=== PATIENT | female | born 1980 | race African-American/Black ===

== ENCOUNTER 2016-08-31 13:14 | Observation (INO) | payer OTHER ==
[2016-08-31 13:30] VITALS: TEMP 98.3; BMI 24.7
[2016-08-31] MEDS ORDERED: SODIUM CHLORIDE 1,000 ML IV ONE (15:14)
[2016-08-31] MEDS ORDERED: ASPIRIN 81 MG CHEWABLE TABLETS PO ONE (15:14)
--- NOTE | 2016-08-31 15:19 | PDOC ---
History of Present Illness - General History Source: Patient Exam Limitations: No Limitations - History of Present Illness Initial Comments: 08/31/16 14:44 The patient is a 36-year-old woman, accompanied by her son, with a past medical history of gastroesophageal reflux disease and depression who presents to the emergency department for further evaluation of persistent chest pain for the past three weeks. No trauma, strenuous activity. She states that for the past 3 weeks, she has been experiencing intermittent mid-sternal pressure sensations with associated shortness of breath, palpitations and chest tightness. She states that for the past few days, she notes that her symptoms are more severe, as she notes that she is unable to perform her daily activities, such as walking up stairs without feeling short of breath. She recalls driving to [place], approximately 2 weeks ago. She states that she is always swollen to her bilateral upper/lower extremities. No recent change. She states that she was recently in this ED, where she was evaluated for bilateral leg swelling and she was informed she had GOUT. No current complaints. She also reports her chronic intermittent productive cough with white-yellow phlegm. No recent change in cough. She reports having an outpatient stress test, approximately 3-4 months ago. She state her stress test was normal. She denies headache,dizziness, lightheadedness, fever, chills, back pain. She denies abdominal pain,nausea, vomiting, diarrhea, hematochezia, melena She denies lower extremity pain/swelling and/or recent prolonged immobilization. Allergies: None Known Past Surgical History: None reported. Social History: Current everyday cigarette smoker (approximately half a pack- 1 pack a day "depending how her day is going"). Occasional ETOH use. Marijuana use. Primary Care Physician: Dr. Radha Dc [phone] <Adilene Clay - Last Filed: 08/31/16 16:25> <Janes Gutierrez - Last Filed: 08/31/16 16:46> - General Chief Complaint: Chest Pain Stated Complaint: CHEST PAIN Time Seen by Provider: 08/31/16 14:42 Past History <Adilene Clay - Last Filed: 08/31/16 16:25> - Past Medical History Asthma: No Cancer: No Cardiac Disorders: No Diabetes: No HTN: No Seizures: No Thyroid Disease: No Other medical history: PT DENIES MEDICAL HX - Psycho/Social/Smoking Cessation Hx Anxiety: No Suicidal Ideation: No Smoking History: Current every day smoker Have you smoked in the past 12 months: Yes Number of Cigarettes Smoked Daily: 10 Information on smoking cessation initiated: No 'Breaking Loose' booklet given: 07/30/13 Hx Alcohol Use: No Drug/Substance Use Hx: No Substance Use Type: None Hx Substance Use Treatment: No <Janes Gutierrez - Last Filed: 08/31/16 16:46> - Past Medical History Allergies/Adverse Reactions: Allergies Allergy/AdvReac Type Severity Reaction Status Date / Time No Known Allergies Allergy Verified 08/31/16 13:31 Home Medications: Ambulatory Orders Dicyclomine HCl [Bentyl -] 20 mg PO Q6H 03/11/16 Mirtazapine 30 mg PO ASDIR 03/11/16 Ondansetron [Zofran -] 4 mg PO TID 03/11/16 Pantoprazole Sodium [Protonix] 40 mg PO ASDIR 03/11/16 Ibuprofen [Motrin -] 600 mg PO QID #28 tablet 03/12/16 Tramadol HCl [Ultram -] 50 mg PO Q6H #8 tablet MDD 4 03/12/16 Review of Systems - Review of Systems Constitutional: Yes: Chills, Night Sweats (chronic). No: Fever Respiratory: Yes: Cough, Shortness of Breath, SOB with Exertion Cardiac (ROS): Yes: Chest Pain, Edema, Palpitations. No: Syncope ABD/GI: No: Nausea, Vomiting Neurological: No: Headache All Other Systems: Reviewed and Negative <Janes Gutierrez - Last Filed: 08/31/16 16:46> *Physical Exam - Vital Signs Last Vital Signs Temp Pulse Resp BP Pulse Ox 98.3 F 88 18 121/62 100 08/31/16 13:28 08/31/16 15:30 08/31/16 13:28 08/31/16 13:28 08/31/16 13:28 - Physical Exam Comments: 08/31/16 14:44 GENERAL: The patient is awake, alert, and fully oriented, in no acute distress. HEAD: Normal with no signs of trauma. EYES: Pupils equal, round and reactive to light, extraocular movements intact, sclera anicteric, conjunctiva clear with no pallor. ENT: Ears normal, nares patent, oropharynx clear without exudates. Moist mucous membranes. NECK: Normal range of motion, supple without lymphadenopathy, JVD, or masses. LUNGS: Breath sounds equal, clear to auscultation bilaterally. No wheeze/ crackles. Dry coarse cough noted during physical examination. HEART: Slight tachycardia but regular rate and rhythm without murmur or rub. ABDOMEN: Soft/nontender/nondistended. BS wnl. No guarding or rebound. No palpable masses. No hepatosplenomegaly. EXTREMITIES: Normal range of motion, no edema. No clubbing or cyanosis. No cords, erythema, or tenderness. NEUROLOGICAL: Cranial nerves II through XII grossly intact. Normal speech. PSYCH: Normal mood, normal affect. SKIN: Warm, Dry, normal turgor, no rashes or lesions noted. <Adilene Clay - Last Filed: 08/31/16 16:25> - Vital Signs Last Vital Signs Temp Pulse Resp BP Pulse Ox 98.3 F 120 H 18 121/62 100 08/31/16 13:28 08/31/16 13:28 08/31/16 13:28 08/31/16 13:28 08/31/16 13:28 <Janes Gutierrez - Last Filed: 08/31/16 16:46> Heart Score/ECG Review - History History: Moderately suspicious - Electrocardiogram EKG: Non specific repolarization disturbance - Age Age: </= 45 - Risk Factors Risk Factors Heart Score: Yes Smoking History Based on the list above the patient has:: 1-2 risk factors - Troponin Troponin: </= normal limit - Score Heart Score - Total: 3 #1 ECG reviewed & interpreted by me at: 12:42 General ECG Interpretation: Sinus Rhythm, Normal Rate (88), Normal Intervals ( qtc 452), No acute ischemic changes (Biphasic T wave in V3, otherwise no acute ST changes.) <Janes Gutierrez - Last Filed: 08/31/16 16:46> ED Treatment Course - LABORATORY CBC & Chemistry Diagram: 08/31/16 15:18 08/31/16 15:18 - Medications Given in the ED: ED Medications Discontinued Medications Generic Name Dose Route Start Last Admin Trade Name Freq PRN Reason Stop Dose Admin Aspirin 162 mg 08/31/16 15:14 08/31/16 15:39 Asa - PO 08/31/16 15:15 162 mg ONCE ONE Administration <Adilene Clay - Last Filed: 08/31/16 16:25> - LABORATORY CBC & Chemistry Diagram: 08/31/16 15:18 08/31/16 15:18 - RADIOLOGY Radiology Studies Ordered: Category Date Time Status CHEST CTA [CT] Stat CT Scan 08/31/16 15:15 Ordered <Janes Gutierrez - Last Filed: 08/31/16 16:46> Medical Decision Making - Medical Decision Making 08/31/16 15:17 A portion of this note was documented by scribe services under my direction. I have reviewed the details of the note, within reason, and agree with the documentation with the following case summary and management plan written by me. 36-year-old female with no significant past medical history, active smoker presents with several weeks of worsening shortness of breath and cough, exertional chest tightness and shortness of breath, intermittent leg swelling. Patient states that her usual exertion now causes substernal to right-sided chest tightness with severe dyspnea, and a dry cough. No PE risk factors, no ACS risk factors or family history, reportedly normal stress test in the last 6 months. Vital signs notable for heart rate at rest of 100-120, O2 sat normal. Dry cough during exam Lungs are clear 36-year-old female with exertional chest pain and dyspnea worsening over the last 3 weeks. Concerning for PE versus ACS, question cardiomyopathy. Question infectious process such as pneumonia. Labs, EKG Will proceed directly to CTA chest to rule out PE Aspirin Admission 08/31/16 16:20 Labs are within normal limits, no leukocytosis and troponin and BNP normal. negative. Awaiting CTA chest, will proceed with admission given exertional chest pain and dyspnea. 08/31/16 16:41 Accepted for obs tele by Dr. Hughes. Patient was signed out to the oncoming ED physician to follow-up the results of the CTA Chest. Will proceed with admission, but should be inpatient if +PE. <Janes Gutierrez - Last Filed: 08/31/16 16:46> *DC/Admit/Observation/Transfer - Attestations Scribe Attestion: 08/31/16 14:44 Documentation prepared by Adilene Clay, acting as medical sales representative for Janes Gutierrez MD. <Adilene Clay - Last Filed: 08/31/16 16:25> - Discharge Dispostion Admit: Yes <Janes Gutierrez - Last Filed: 08/31/16 16:46> Diagnosis at time of Disposition: Exertional chest pain, Tachycardia - Referrals Referrals: Amina Dc [Primary Care Provider] -
[2016-08-31] MEDS ORDERED: ASPIRIN 81 MG CHEWABLE TABLETS ONE (15:34)
[2016-08-31 15:41] LABS: BASOPHIL 0.5 % (0-2.0); EOSINOPHIL 0.4 % (0-4.5); MCH 24.8 pg (25.7-33.7); MCHC 32.6 g/dl (32.0-36.0); MEAN CELL VOLUME 75.9 fl (80-96); NEUTROPHILS 59.5 % (42.8-82.8); PLATELET COUNT 397 K/MM3 (134-434); RDW 17.8 % (11.6-15.6); WHITE BLOOD COUNT 10.3 K/mm3 (4.0-10.0)
[2016-08-31 15:56] LABS: INR 1.01 (0.82-1.09); PROTHROMBIN TIME (PATIENT) 11.1 SEC (9.98-11.88)
[2016-08-31 16:12] LABS: ALBUMIN 3.7 g/dl (3.4-5.0); ALK PHOS 98 U/L (45-117); ANION GAP 14 (8-16); BILIRUBIN,TOTAL 0.2 mg/dL (0.2-1.0); CO2 22 mmol/L (21-32); CREATININE 0.8 mg/dL (0.55-1.02); GLUCOSE,RANDOM 95 mg/dL (74-106); SGOT/AST 32 U/L (15-37); SGPT/ALT 36 U/L (12-78); TOT PROT 8.1 g/dl (6.4-8.2)
[2016-08-31 16:14] LABS: TROPONIN I < 0.02 ng/ml (0.00-0.05)
[2016-08-31] MEDS ORDERED: ONDANSETRON 4 MG/2 ML VIAL IVPB PRN (18:01)
[2016-08-31] MEDS ORDERED: ACETAMINOPHEN 325 MG TABLET (FP) PO PRN (18:01)
--- NOTE | 2016-08-31 18:01 | HP ---
CHIEF COMPLAINT: Chest pain PCP: Dr. Dc HISTORY OF PRESENT ILLNESS: This is a 36 year old female with a history of childhood asthma, GERD, and depression who presented to the ED today complaining of 3 weeks of intermittent chest tightness/pressure, dyspnea on minimal exertion (<1 block exercise tolerance) and palpitations. She does report bilateral LE edema, but states that this is chronic and unchanged. 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 She denies OCP/estrogen use, family/personal history of hypercoaguability, recent trauma or surgery, and hemoptysis. She traveled to [place] by car two weeks ago, but notes that symptoms preceded travel. She is an active smoker. 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 Smokin/2 - 1 pack daily x 22 yrs Alcohol: Occasional Drugs: Marijuana use Allergies No Known Allergies Allergy (Verified 08/31/16 13:31) HOME MEDICATIONS: Home Medications Medication Instructions Recorded Dicyclomine HCl [Bentyl -] 20 mg PO Q6H 03/11/16 Mirtazapine 30 mg PO ASDIR 03/11/16 Ondansetron [Zofran -] 4 mg PO TID 03/11/16 Pantoprazole Sodium [Protonix] 40 mg PO ASDIR 03/11/16 Ibuprofen [Motrin -] 600 mg PO QID #28 tablet 03/12/16 Tramadol HCl [Ultram -] 50 mg PO Q6H #8 tablet MDD 4 03/12/16 REVIEW OF SYSTEMS CONSTITUTIONAL: Absent: fever, chills, diaphoresis, generalized weakness, malaise, loss of appetite, weight change HEENT: Absent: rhinorrhea, nasal congestion, throat pain, throat swelling, difficulty swallowing, mouth swelling, ear pain, eye pain, visual changes CARDIOVASCULAR: See HPI RESPIRATORY: Non-productive cough, shortness of breath, NG GASTROINTESTINAL: Absent: abdominal pain, abdominal distension, nausea, vomiting, diarrhea, constipation, melena, hematochezia GENITOURINARY: Absent: dysuria, frequency, urgency, hesitancy, hematuria, flank pain, genital pain MUSCULOSKELETAL: Absent: myalgia, arthralgia, joint swelling, back pain, neck pain SKIN: Absent: rash, itching, pallor HEMATOLOGIC/IMMUNOLOGIC: Absent: easy bleeding, easy bruising, lymphadenopathy, frequent infections ENDOCRINE: Absent: unexplained weight gain, unexplained weight loss, heat intolerance, cold intolerance NEUROLOGIC: Absent: headache, focal weakness or paresthesias, dizziness, unsteady gait, seizure, mental status changes, bladder or bowel incontinence PSYCHIATRIC: History of depression/anxiety PHYSICAL EXAMINATION Vital Signs - 24 hr 08/31/16 08/31/16 08/31/16 13:28 15:30 16:35 Temperature 98.3 F Pulse Rate 120 H Pulse Rate [ 88 105 H Radial] Respiratory 18 18 Rate Blood Pressure 121/62 Blood Pressure 105/70 [Right Arm] O2 Sat by Pulse 100 100 Oximetry (%) GENERAL: Awake, alert, and fully oriented, in no acute distress. HEAD: Normal with no signs of trauma. EYES: Pupils equal, round and reactive to light, extraocular movements intact, sclera anicteric, conjunctiva clear. No lid lag. EARS, NOSE, THROAT: Ears normal, nares patent, oropharynx clear without exudates. Moist mucous membranes. NECK: Normal range of motion, supple without lymphadenopathy, JVD, or masses. LUNGS: Breath sounds equal, clear to auscultation bilaterally. No wheezes, and no crackles. No accessory muscle use. HEART: Regular rate and rhythm, normal S1 and S2 without murmur, rub or gallop. ABDOMEN: Soft, nontender, not distended, normoactive bowel sounds, no guarding, no rebound, no masses. No hepatomegaly or splenomegaly. MUSCULOSKELETAL: Normal range of motion at all joints. No bony deformities or tenderness. No CVA tenderness. UPPER EXTREMITIES: 2+ pulses, warm, well-perfused. No cyanosis. No clubbing. Cap refill <2 seconds. No peripheral edema. LOWER EXTREMITIES: 2+ pulses, warm, well-perfused. No calf tenderness. No peripheral edema. NEUROLOGICAL: Cranial nerves II-XII intact. Normal speech. Normal gait. PSYCHIATRIC: Anxious affect. SKIN: Warm, dry, normal turgor, no rashes or lesions noted. Laboratory Results - last 24 hr 08/31/16 08/31/16 08/31/16 15:18 15:18 15:18 WBC 10.3 H RBC 4.79 D Hgb 11.9 Hct 36.4 MCV 75.9 L MCHC 32.6 RDW 17.8 H D Plt Count 397 D MPV 7.0 L Neutrophils % 59.5 D Lymphocytes % 33.1 D Monocytes % 6.5 D Eosinophils % 0.4 Basophils % 0.5 INR 1.01 Sodium Potassium Chloride Carbon Dioxide Anion Gap BUN Creatinine Creat Clearance w eGFR Random Glucose Calcium Magnesium Total Bilirubin AST ALT Alkaline Phosphatase Creatine Kinase Troponin I B-Natriuretic Peptide Total Protein Albumin Serum , Qual Negative Blood Type Antibody Screen 08/31/16 08/31/16 15:18 16:45 WBC RBC Hgb Hct MCV MCHC RDW Plt Count MPV Neutrophils % Lymphocytes % Monocytes % Eosinophils % Basophils % INR Sodium 137 Potassium 3.7 Chloride 101 Carbon Dioxide 22 Anion Gap 14 BUN 12 D Creatinine 0.8 D Creat Clearance w eGFR > 60 Random Glucose 95 D Calcium 9.0 Magnesium 2.0 Total Bilirubin 0.2 D AST 32 D ALT 36 D Alkaline Phosphatase 98 D Creatine Kinase 101 Troponin I < 0.02 B-Natriuretic Peptide 37.61 Total Protein 8.1 D Albumin 3.7 Serum , Qual Blood Type O POSITIVE Antibody Screen Negative ASSESSMENT/PLAN: 36 year old female placed in observation for chest pain and NG. Problem List - Problem (1) Chest pain Assessment/Plan: -Monitor on telemetry -Follow up CTA chest to r/o PE -Serial troponins to r/o NM -Check TSH (tachycardia), lipid profile -Suspect MS etiology; trial of Toradol for pain relief Code(s): R07.9 - CHEST PAIN, UNSPECIFIED (2) Dyspnea on exertion Assessment/Plan: -Echocardiogram Code(s): R06.09 - OTHER FORMS OF DYSPNEA (3) Smoking Assessment/Plan: -Smoking cessation counseling -Nicotine replacement Code(s): F17.200 - NICOTINE DEPENDENCE, UNSPECIFIED, UNCOMPLICATED (4) DVT prophylaxis Assessment/Plan: -Low risk (short expected length of stay) -Early ambulation Code(s): GVC2926 - Visit type - Emergency Visit Emergency Visit: Yes ED Registration Date: 08/31/16 Care time: The patient presented to the Emergency Department on the above date and was hospitalized for further evaluation of their emergent condition. - New Patient This patient is new to me today: Yes Date on this admission: 08/31/16 - Critical Care Critical Care patient: No
[2016-08-31] MEDS ORDERED: KETOROLAC TROMETHAMINE 15 MG/ML VIAL IVPUSH PRN (18:04)
[2016-08-31] MEDS ORDERED: KETOROLAC TROMETHAMINE 30 MG/1 ML VIAL IVPUSH ONE (18:04)
[2016-08-31] MEDS ORDERED: NICOTINE 14 MG/24 HOURS TOPICAL PATCH TD SCH (18:15)
[2016-08-31] MEDS ORDERED: KETOROLAC TROMETHAMINE 30 MG/1 ML VIAL ONE (18:32)
[2016-08-31 19:17] VITALS: BP 121/85; PULSE 94
--- NOTE | 2016-09-01 13:57 | EKG ---
Test Reason : Blood Pressure : / mmHG Vent. Rate : 088 BPM Atrial Rate : 088 BPM P-R Int : 108 ms QRS Dur : 072 ms QT Int : 374 ms P-R-T Axes : 052 021 032 degrees QTc Int : 452 ms SINUS RHYTHM WITH SHORT WA NONSPECIFIC ST AND T WAVE ABNORMALITY ABNORMAL ECG NO PREVIOUS ECGS AVAILABLE Confirmed by JACOB CARUSO MD ([id number]) on 09/01/2016 1:56:57 PM Referred By: Confirmed By:JACOB CARUSO MD
--- NOTE | 2016-09-01 16:41 | DS ---
Physical Exam: SUBJECTIVE: Patient seen and examined. Still complains of chest pain but wants to sign out AMA. OBJECTIVE: Vital Signs Period Temp Pulse Resp BP Sys/Ivy Pulse Ox Last 24 Hr 94 20 121/85 94 PHYSICAL EXAM GENERAL: The patient is awake, alert, and fully oriented, in no acute distress. HEAD: Normal with no signs of trauma. EYES: PERRL, extraocular movements intact, sclera anicteric, conjunctiva clear. ENT: Ears normal, nares patent, oropharynx clear without exudates, moist mucous membranes. NECK: Trachea midline, full range of motion, supple. LUNGS: Breath sounds equal, clear to auscultation bilaterally, no wheezes, no crackles, no accessory muscle use. HEART: Regular rate and rhythm, S1, S2 without murmur, rub or gallop. ABDOMEN: Soft, nontender, nondistended, normoactive bowel sounds, no guarding, no rebound, no hepatosplenomegaly, no masses. EXTREMITIES: 2+ pulses, warm, well-perfused, no edema. NEUROLOGICAL: Cranial nerves II through XII grossly intact. Normal speech, gait not observed. PSYCH: Anxious affect, tearful. SKIN: Warm, dry, normal turgor, no rashes or lesions noted. LABS HOSPITAL COURSE: This is a 36 year old female with a history of childhood asthma , GERD, and depression who presented to the ED today complaining of 3 weeks of intermittent chest tightness/pressure, dyspnea on minimal exertion (<1 block exercise tolerance) and palpitations. She does report bilateral LE edema, but states that this is chronic and unchanged. 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 She denies OCP/estrogen use, family/personal history of hypercoaguability, recent trauma or surgery, and hemoptysis. She traveled to [place] by car two weeks ago, but notes that symptoms preceded travel. She is an active smoker. ER course was notable for: (1) Triage HR 120 (2) EKG: NSR rate of 88 (3) Troponin <0.02 CTA was obtained and was negative for PE. Patient was counseled on risks of leaving prior to completion of workup, including . She understands. Patient encouraged to return for re- evaluation. Date of Admission:08/31/16 Date of Discharge: 09/01/16 Minutes to complete discharge: 35 Discharge Summary Reason For Visit: CHEST PAIN ON EXERTION - Instructions Diet, Activity, Other Instructions: -You are being signed out AGAINST MEDICAL ADVICE. -You were recommended to have observation on telemetry to rule out arrhythmias, echocardiogram to assess the structure and function of the heart, serial cardiac tests to rule out heart attack, and pulmonary consultation for abnormal chest CT scan, but you declined -You are risking complications including heart attack, heart failure, and -Please return at any time if you would like to continue your evaluation Referrals: Elio José MD [Staff Physician] - (Cardiology) Amina Dc [Primary Care Provider] - Disposition: AGAINST MEDICAL ADVICE - Home Medications Comprehensive Discharge Medication List: Ambulatory Orders Dicyclomine HCl [Bentyl -] 20 mg PO Q6H 03/11/16 Mirtazapine 30 mg PO ASDIR 03/11/16 Ondansetron [Zofran -] 4 mg PO TID 03/11/16 Pantoprazole Sodium [Protonix] 40 mg PO ASDIR 03/11/16 Ibuprofen [Motrin -] 600 mg PO QID #28 tablet 03/12/16 Tramadol HCl [Ultram -] 50 mg PO Q6H #8 tablet MDD 4 03/12/16 Problem List - Problems (1) Chest pain Code(s): R07.9 - CHEST PAIN, UNSPECIFIED (2) Dyspnea on exertion Code(s): R06.09 - OTHER FORMS OF DYSPNEA (3) Smoking Code(s): F17.200 - NICOTINE DEPENDENCE, UNSPECIFIED, UNCOMPLICATED (4) DVT prophylaxis Code(s): BFB1064 - This patient is new to me today: No Emergency Visit: Yes ED Registration Date: 08/31/16 Care time: The patient presented to the Emergency Department on the above date and was hospitalized for further evaluation of their emergent condition. Critical Care patient: No - Discharge Referral Referred to [facility] No
== END 2016-08-31 19:20 | disposition left against medical advice (07) ==
LOC: JER 13:14 → JERBED 16:47
PROVIDERS: ADMIT Internal Medicine; ATTEND Internal Medicine
DX: R07.9 Chest pain, unspecified (principal); K21.9 Gastro-esophageal reflux disease without esophagitis; F32.9 Major depressive disorder, single episode, unspecified; R00.0 Tachycardia, unspecified; F17.210 Nicotine dependence, cigarettes, uncomplicated; R06.00 Dyspnea, unspecified
CPT/HCPCS: 36415; 71275-TC; 80053; 82550; 83735; 83880; 84484; 84703; 85025; 85610; 86850; 86900; 86901; 93005; 93010; 99285-25; G0378

== ENCOUNTER 2016-09-01 17:43 | Emergency (ER) | payer OTHER ==
[2016-09-01 17:51] VITALS: BP 126/72; PULSE 120; TEMP 98.2; BMI 24.7
--- NOTE | 2016-09-01 17:51 | PDOC ---
Rapid Medical Evaluation Time Seen by Provider: 09/01/16 17:46 Medical Evaluation: Allergies Allergy/AdvReac Type Severity Reaction Status Date / Time No Known Allergies Allergy Verified 08/31/16 13:31 09/01/16 17:48 RME Note: I have performed a brief, in-person evaluation of this patient . This patient presents with CC: return today with continued chest pain, with SOB > 1week; signed AMA yesterday Pertinent PE findings are: HR= 117 I have ordered: EKG The patient will proceed to ED for further evaluation. JR
[2016-09-01 19:37] LABS: BASOPHIL 0.7 % (0-2.0); EOSINOPHIL 2.1 % (0-4.5); MCH 25.1 pg (25.7-33.7); MEAN PLT VOLUME 6.6 fl (7.5-11.1); NEUTROPHILS 53.8 % (42.8-82.8); PLATELET COUNT 347 K/MM3 (134-434); RDW 17.4 % (11.6-15.6); WHITE BLOOD COUNT 7.9 K/mm3 (4.0-10.0)
[2016-09-01 20:09] LABS: ALBUMIN 3.1 g/dl (3.4-5.0); ANION GAP 8 (8-16); BILIRUBIN,TOTAL 0.2 mg/dL (0.2-1.0); CALCIUM 8.1 mg/dL (8.5-10.1); CO2 24 mmol/L (21-32); CREATININE 0.8 mg/dL (0.55-1.02); GLUCOSE,RANDOM 90 mg/dL (74-106); SGOT/AST 36 U/L (15-37); SGPT/ALT 36 U/L (12-78); TOT PROT 6.8 g/dl (6.4-8.2)
[2016-09-01 20:12] LABS: ALK PHOS 91 U/L (45-117); TROPONIN I < 0.02 ng/ml (0.00-0.05)
[2016-09-01 20:19] LABS: INR 0.96 (0.82-1.09)
[2016-09-01 20:22] LABS: D-DIMER < 200 ng/ml (<200-235)
--- NOTE | 2016-09-01 21:26 | PDOC ---
History of Present Illness - General Chief Complaint: Chest Pain Stated Complaint: PAIN Time Seen by Provider: 09/01/16 17:46 - History of Present Illness Initial Comments: 09/01/16 21:18 CHIEF COMPLAINT: chest pain HISTORY OF PRESENT ILLNESS: 36 yo F with a history of childhood asthma, GERD, and depression who returns to the ED today with complaints of 3 weeks of intermittent chest tightness/pressure, dyspnea with minimal exertion, and palpitations. Patient states she can "barely walk up stairs" before she feels palpitations. She also complains of a cough for over a month "but I think it's probably a smoker's cough, that's what it sounds like." She states that her chest feels tight sometimes when she breathes. She denies any fever, nausea, vomiting, diarrhea. She had a negative CTA yesterday for r/o PE and had negative trops. She was admitted for serial trops but signed out AMA. No recent travel or sick contacts. PAST MEDICAL HISTORY: "hyperactive thyroid disease runs very strong in my family." FAMILY HISTORY: Denies SOCIAL HISTORY: Current 28 pack year smoking history, 1/2-1 pack daily. Rare alcohol and marijuana use, denies other illicit drug use. SURGICAL HISTORY: Denies ALLERGIES: No known drug allergies REVIEW OF SYSTEMS General/Constitutional: Denies fever or chills. Denies weakness, weight change. HEENT: Denies change in vision. Denies ear pain or discharge. Denies sore throat. Cardiovascular: Chest pain x 3 weeks with palpitations and dyspnea on exertion. Respiratory: Denies cough, wheezing, or hemoptysis. Gastrointestinal: Denies nausea, vomiting, diarrhea or constipation. Denies rectal bleeding. Genitourinary: Denies dysuria, frequency, or change in urination. Musculoskeletal: Denies joint or muscle swelling or pain. Denies neck or back pain. Skin and breasts: Denies rash or easy bruising. Neurologic: Denies headache, vertigo, loss of consciousness, or loss of sensation. Psychiatric: Hx of depresison. PHYSICAL EXAM General Appearance: Well-appearing, appropriately dressed. No apparent distress , no intoxication. HEENT: EOMI, PERRLA, normal ENT inspection, normal voice, TMs normal, pharynx normal. No conjunctival pallor. No photophobia, scleral icterus. Neck: Supple. Trachea midline. No tenderness, rigidity, carotid bruit, stridor , lymphadenopathy, or thyromegaly. Respiratory/Chest: Lungs CTAB. No shortness of breath, chest tenderness, respiratory distress, accessory muscle use. No crackles, rales, rhonchi, stridor , wheezing, dullness Cardiovascular: Patient is tachycardic to 120, without murmurs or rubs. S1, S2. Vascular Pulses: Dorsalis-Pedis (R): 2+, Dorsalis-Pedis (L): 2+ Gastrointestinal/Abdominal: Normal bowel sounds. Abdomen soft, non-distended. No tenderness or rebound tenderness. No organomegaly, pulsatile mass, guarding , hernia, hepatomegaly, splenomegaly. Lymphatic: No adenopathy, tenderness. Musculoskeletal/Extremities: Normal inspection. FROM of all extremities, normal capillary refill. Pelvis Stable. No CVA tenderness. No tenderness to extremities, pedal edema, swelling, erythema or deformity. Integumentary: Appropriate color, dry, warm. 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 Fully oriented, alert. Appropriate mood/affect. Motor strength 5/5. No appreciable EOM palsy, facial droop or sensory deficit. 09/01/16 21:26 Past History - Past Medical History Allergies/Adverse Reactions: Allergies Allergy/AdvReac Type Severity Reaction Status Date / Time No Known Allergies Allergy Verified 09/01/16 17:50 Home Medications: Ambulatory Orders Dicyclomine HCl [Bentyl -] 20 mg PO Q6H 03/11/16 Mirtazapine 30 mg PO ASDIR 03/11/16 Ondansetron [Zofran -] 4 mg PO TID 03/11/16 Pantoprazole Sodium [Protonix] 40 mg PO ASDIR 03/11/16 Ibuprofen [Motrin -] 600 mg PO QID #28 tablet 03/12/16 Tramadol HCl [Ultram -] 50 mg PO Q6H #8 tablet MDD 4 03/12/16 Asthma: No Cancer: No Cardiac Disorders: No Diabetes: No HTN: No Seizures: No Thyroid Disease: No - Psycho/Social/Smoking Cessation Hx Anxiety: No Suicidal Ideation: No Smoking History: Current every day smoker Have you smoked in the past 12 months: Yes Number of Cigarettes Smoked Daily: 10 Information on smoking cessation initiated: Yes 'Breaking Loose' booklet given: 09/01/16 Hx Alcohol Use: No Drug/Substance Use Hx: No Substance Use Type: None Hx Substance Use Treatment: No *Physical Exam - Vital Signs Last Vital Signs Temp Pulse Resp BP Pulse Ox 98.2 F 120 H 99 H 126/72 99 09/01/16 17:48 09/01/16 17:48 09/01/16 17:48 09/01/16 17:48 09/01/16 17:48 ED Treatment Course - LABORATORY CBC & Chemistry Diagram: 09/01/16 19:11 09/01/16 19:11 - ADDITIONAL ORDERS Additional order review: Laboratory Results 09/01/16 09/01/16 09/01/16 20:30 19:33 19:11 INR D-Dimer Sodium 141 Potassium 4.1 Chloride 109 H Carbon Dioxide 24 Anion Gap 8 BUN 8 D Creatinine 0.8 Creat Clearance w eGFR > 60 Random Glucose 90 Calcium 8.1 L Total Bilirubin 0.2 AST 36 ALT 36 Alkaline Phosphatase 91 Creatine Kinase 94 Troponin I < 0.02 Total Protein 6.8 Albumin 3.1 L TSH 0.29 L Urine HCG, Qual Negative 09/01/16 19:11 INR 0.96 D-Dimer < 200 Sodium Potassium Chloride Carbon Dioxide Anion Gap BUN Creatinine Creat Clearance w eGFR Random Glucose Calcium Total Bilirubin AST ALT Alkaline Phosphatase Creatine Kinase Troponin I Total Protein Albumin TSH Urine HCG, Qual 09/01/16 19:11 RBC 3.94 MCV 76.0 L MCHC 33.0 RDW 17.4 H MPV 6.6 L Neutrophils % 53.8 Lymphocytes % 38.2 Monocytes % 5.2 Eosinophils % 2.1 D Basophils % 0.7 Medical Decision Making - Medical Decision Making 09/01/16 21:44 36 yo F with a history of childhood asthma, GERD, and depression who returns to the ED today with complaints of 3 weeks of intermittent chest tightness/ pressure, dyspnea with minimal exertion, and palpitations. Vitals signs notable for HR 120, on physical exam HR was 98. RR was charted as 99 but on exam RR was 18. -CBC, CMP, cardiac profile, TSH, D-dimer Labs: TSH 0.29, otherwise unremarkable. Trops negative yesterday and today. CTA yesterday negative for PE, D-dimer <200 today. Tachycardia and palpitations likely from hyperthyroidism. Discussed with patient that she needs to follow up with PCP for further evaluation and management of hyperthyroidism. Patient states that she has been diagnosed with this before and did take medicine for this "at some point." Patient agrees to see PCP on Monday. Advised patient of signs and symptoms for return to ER; patient verbalized understanding and agrees to plan. *DC/Admit/Observation/Transfer Diagnosis at time of Disposition: Hyperthyroidism - Discharge Dispostion Admit: No - Referrals Referrals: Amina Dc [Primary Care Provider] - - Patient Instructions Printed Discharge Instructions: DI for Hyperthyroidism Additional Instructions: As discussed, you must follow up with Dr. Dc by Monday for further evaluation and management of your hyperthyroidism. If you experience new chest pain or pain to your left arm or jaw, or unusual swelling to one side of your leg, severe headache, weakness to one side, fever, change in mental status, or any new or worsening symptoms, please return to the ER immediately. - Post Discharge Activity Work/School Note: Back to Work
--- NOTE | 2016-09-02 11:01 | EKG ---
Test Reason : Blood Pressure : / mmHG Vent. Rate : 106 BPM Atrial Rate : 106 BPM P-R Int : 132 ms QRS Dur : 072 ms QT Int : 362 ms P-R-T Axes : 064 003 045 degrees QTc Int : 480 ms SINUS TACHYCARDIA NONSPECIFIC ST ABNORMALITY Confirmed by MONTY ROLLE MD ([id number]) on 09/02/2016 11:01:05 AM Referred By: Confirmed By:MONTY ROLLE MD
== END 2016-09-01 21:49 | disposition home or self-care (01) ==
LOC: JER 17:43
DX: E05.80 Other thyrotoxicosis without thyrotoxic crisis or storm (principal); F17.210 Nicotine dependence, cigarettes, uncomplicated; F32.9 Major depressive disorder, single episode, unspecified; K21.9 Gastro-esophageal reflux disease without esophagitis
CPT/HCPCS: 36415; 71010-TC; 80053; 82550; 84443; 84484; 84703; 85025; 85379; 85610; 93005; 93010; 99282-25

== ENCOUNTER 2016-11-21 16:27 | Emergency (ER) | payer OTHER ==
--- NOTE | 2016-11-21 16:34 | PDOC ---
Rapid Medical Evaluation Chief Complaint: Urinary Problem Medical Evaluation: Allergies Allergy/AdvReac Type Severity Reaction Status Date / Time No Known Allergies Allergy Verified 11/21/16 16:32 I have performed a brief in-person evaluation of this patient. The patient presents with a chief complaint of:urinary urgency and frequency Pertinent physical exam findings:none I have ordered the following:ua, urine , urine culture The patient will proceed to the ED for further evaluation. 11/21/16 16:33
[2016-11-21 16:37] VITALS: BP 123/80; PULSE 112; TEMP 98.5; BMI 25.3
[2016-11-21 17:09] LABS: URINE APPEARANCE SLCLOUDY; URINE BILIRUBIN NEGATIVE (NEGATIVE); URINE COLOR YELLOW; URINE GLUCOSE (UA) NEGATIVE (NEGATIVE); URINE KETONE TRACE (NEGATIVE); URINE NITRITE NEGATIVE (NEGATIVE); URINE UROBILINOGEN NEGATIVE E.U./dl (0.2-1.0)
[2016-11-21 17:33] LABS: URINE BLOOD 1+ (NEGATIVE); URINE LEUK ESTERASE 3+ (NEGATIVE); URINE PROTEIN 1+ (NEGATIVE)
[2016-11-21 17:35] LABS: URINE MUCUS RARE; URINE RBC 2 /hpf (0-3); URINE WBC 84 /hpf (3-5)
--- NOTE | 2016-11-21 17:57 | PDOC ---
History of Present Illness - General Chief Complaint: Urinary Problem Stated Complaint: URINARY PROBLEM Time Seen by Provider: 11/21/16 16:35 History Source: Patient Exam Limitations: No Limitations - History of Present Illness Travel History: No Initial Comments: 11/21/16 18:24 Patient is here with complaints of dysuria, frequency and burning with Gomes that started yesterday. States had urinary tract infection last one was over 3 years ago. Denies fever, chills, nausea vomiting, no vaginal drainage or problems with bowels. Timing/Duration: reports: getting worse Quality: reports: mild Alleviating Factors: improves with: None Past History - Travel Traveled outside of the country in the last 30 days: No Close contact w/someone who was outside of country & ill: No - Past Medical History Allergies/Adverse Reactions: Allergies Allergy/AdvReac Type Severity Reaction Status Date / Time No Known Allergies Allergy Verified 11/21/16 16:32 Home Medications: Ambulatory Orders Dicyclomine HCl [Bentyl -] 20 mg PO Q6H 03/11/16 Mirtazapine 30 mg PO ASDIR 03/11/16 Ondansetron [Zofran -] 4 mg PO TID 03/11/16 Pantoprazole Sodium [Protonix] 40 mg PO ASDIR 03/11/16 Ibuprofen [Motrin -] 600 mg PO QID #28 tablet 03/12/16 Tramadol HCl [Ultram -] 50 mg PO Q6H #8 tablet MDD 4 03/12/16 Sulfamethoxazole/Trimethoprim [Bactrim *Ds*] 1 each PO BID #14 tablet 11/21/16 Asthma: No Cancer: No Cardiac Disorders: Yes (tachycardia) Diabetes: No HTN: No Seizures: No Thyroid Disease: No Other medical history: none - Psycho/Social/Smoking Cessation Hx Anxiety: No Suicidal Ideation: No Smoking History: Current every day smoker Have you smoked in the past 12 months: Yes Number of Cigarettes Smoked Daily: 10 Information on smoking cessation initiated: Yes 'Breaking Loose' booklet given: 11/21/16 Hx Alcohol Use: Yes Drug/Substance Use Hx: Yes Substance Use Type: Alcohol, Marijuana Hx Substance Use Treatment: No Review of Systems - Review of Systems Able to Perform ROS?: Yes Is the patient limited Hungarian proficient: Yes Constitutional: Yes: Symptoms Reported, See HPI, Malaise. No: Fever Respiratory: Yes: Symptoms reported : Yes: Symptoms Reported, See HPI, Burning, Dysuria, Frequency Musculoskeletal: Yes: Symptoms Reported Neurological: No: Symptoms reported All Other Systems: Reviewed and Negative *Physical Exam - Vital Signs Last Vital Signs Temp Pulse Resp BP Pulse Ox 98.5 F 112 H 18 123/80 100 11/21/16 16:33 11/21/16 16:33 11/21/16 16:33 11/21/16 16:33 11/21/16 16:33 - Physical Exam General Appearance: Yes: Nourished, Appropriately Dressed, Apparent Distress, Mild Distress HEENT: positive: NEFTALI, Normal ENT Inspection, TMs Normal, Pharynx Normal Neck: positive: Supple. negative: Tender Respiratory/Chest: positive: Lungs Clear, Normal Breath Sounds Gastrointestinal/Abdominal: positive: Soft, Tenderness (he prepubertal). negative: Tender Musculoskeletal: positive: Normal Inspection. 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, Fully Oriented, Alert, Normal Mood/ Affect, Normal Response, Motor Strength 5/ ED Treatment Course - ADDITIONAL ORDERS Additional order review: Laboratory Results 11/21/16 17:00 Urine Color Yellow Urine Appearance Slcloudy Urine pH 5.0 D Urine Protein 1+ H Urine Glucose (UA) Negative Urine Ketones Trace H Urine Blood 1+ H Urine Nitrite Negative Urine Bilirubin Negative Urine Urobilinogen Negative Ur Leukocyte Esterase 3+ H Urine RBC 2 Urine WBC 84 Ur Epithelial Cells Moderate Urine Mucus Rare Urine HCG, Qual Negative *DC/Admit/Observation/Transfer Diagnosis at time of Disposition: Urinary tract infection Qualifiers: Urinary tract infection type: acute cystitis Hematuria presence: with hematuria Qualified Code(s): N30.01 - Acute cystitis with hematuria - Discharge Dispostion Disposition: HOME Condition at time of disposition: Stable Admit: No - Patient Instructions Printed Discharge Instructions: DI for Urinary Tract Infection (UTI) Additional Instructions: Rest, drink lots of fluids: Teas, water, soups Avoid contact with others until fevers and symptoms resolved Lots of handwashing and good hygiene Continue [id number] medications for symptomatic relief Tylenol or Motrin for fever and pain Continue all of antibiotics until completed Followup with private physician in one week for repeat urinalysis/reevaluation Return to emergency department for worsened symptoms, fevers, dehydration - Post Discharge Activity Work/School Note: Back to Work
[2016-11-21] MEDS ORDERED: SULFAMETHOXAZOLE/TRIMETHOPRIM 800MG/160MG D.S. TABLET PO ONE (18:20)
[2016-11-21] MEDS ORDERED: SULFAMETHOXAZOLE/TRIMETHOPRIM 800MG/160MG D.S. TABLET ONE (18:25)
== END 2016-11-21 18:15 | disposition home or self-care (01) ==
LOC: JERFT 16:27
DX: N30.01 Acute cystitis with hematuria (principal)
CPT/HCPCS: 81003; 81015; 84703; 87086; 87186; 99281-25

== ENCOUNTER 2018-06-04 10:33 | Emergency (ER) | payer OTHER ==
[2018-06-04 10:59] VITALS: BP 127/64; PULSE 116; TEMP 99.4; BMI 23.4
[2018-06-04] MEDS ORDERED: DEXAMETHASONE LIQUID 0.5 MG/5 ML 240 ML BULK BOTTLE PO ONE (11:58)
[2018-06-04] MEDS ORDERED: ALBUTEROL SO4 2.5/IPRATROPIUM 0.5 INH SOL 3 ML VIAL.NEB. NEB ONE (12:00)
[2018-06-04] MEDS ORDERED: DEXAMETHASONE SOD PHOSPHATE 10 MG/1 ML VIAL ONE (12:00)
--- NOTE | 2018-06-04 12:00 | PDOC ---
History of Present Illness - General Chief Complaint: Respiratory Stated Complaint: COLD SYMPTOMS Time Seen by Provider: 06/04/18 11:53 - History of Present Illness Initial Comments: 06/04/18 11:59 37-year-old female with past medical history significant for asthma presents for evaluation of cough and chest congestion 6 days. She denies fever. She denies any chance of . She has no pleuritic chest pain. Her chest pain is only exacerbated when she coughs Past History - Past Medical History Allergies/Adverse Reactions: Allergies Allergy/AdvReac Type Severity Reaction Status Date / Time No Known Allergies Allergy Verified 11/21/16 16:32 Home Medications: Ambulatory Orders Dicyclomine HCl [Bentyl -] 20 mg PO Q6H 03/11/16 Mirtazapine 30 mg PO ASDIR 03/11/16 Ondansetron [Zofran -] 4 mg PO TID 03/11/16 Pantoprazole Sodium [Protonix] 40 mg PO ASDIR 03/11/16 Ibuprofen [Motrin -] 600 mg PO QID #28 tablet 03/12/16 traMADol HCL [Ultram -] 50 mg PO Q6H #8 tablet MDD 4 03/12/16 Sulfamethoxazole/Trimethoprim [Bactrim *Ds*] 1 each PO BID #14 tablet 11/21/16 Albuterol Sulfate Inhaler - [Ventolin HFA Inhaler -] 1 - 2 inh PO Q4H #1 inhaler 06/04/18 Asthma: No Cancer: No Cardiac Disorders: Yes (tachycardia) COPD: No Diabetes: No HTN: No Seizures: No Thyroid Disease: No - Immunization History Immunization Up to Date: No - Suicide/Smoking/Psychosocial Hx Smoking History: Current every day smoker Have you smoked in the past 12 months: No Number of Cigarettes Smoked Daily: 10 Information on smoking cessation initiated: No 'Breaking Loose' booklet given: 11/21/16 Hx Alcohol Use: No Drug/Substance Use Hx: No Substance Use Type: Alcohol, Marijuana Hx Substance Use Treatment: No Review of Systems - Review of Systems Constitutional: No: Fever Respiratory: Yes: Cough Cardiac (ROS): Yes: See HPI, Chest Pain *Physical Exam - Vital Signs Last Vital Signs Temp Pulse Resp BP Pulse Ox 99.4 F 116 H 18 127/64 98 06/04/18 10:54 06/04/18 10:54 06/04/18 10:54 06/04/18 10:54 06/04/18 10:54 - Physical Exam Comments: 06/04/18 11:59 HEAD: NC/AT EYES: Conjuntiva clear Ears: Canals and TM's normal NOSE: No d/c THROAT: Moist mucous membrances, oral pharanx clear, uvula midline NECK: Supple without adenopathy CARDIAC: S1 S2 LUNGS: Basilar rhonchi and wheezing poor inspiratory effort ABDOMEN: Soft NT ND MS: Full ROM in all joints without edema NEUROLOGIC: No gross sensory or motor deficits, NVID SKIN: Normal color and temperature no lesions or rashes Moderate Sedation - Procedure Monitoring Vital Signs: Procedure Monitoring Vital Signs Temperature 99.4 F 06/04/18 10:54 Pulse Rate 116 H 06/04/18 10:54 Respiratory Rate 18 06/04/18 10:54 Blood Pressure 127/64 06/04/18 10:54 O2 Sat by Pulse Oximetry (%) 98 06/04/18 10:54 Medical Decision Making - Medical Decision Making 06/04/18 13:05 Clear breath sounds after the second albuterol treatment and Decadron *DC/Admit/Observation/Transfer Diagnosis at time of Disposition: Asthma exacerbation - Discharge Dispostion Disposition: HOME Condition at time of disposition: Improved Decision to Admit order: No - Referrals Referrals: Amina Dc [Primary Care Provider] - - Patient Instructions Printed Discharge Instructions: Asthma -- Adult, DI for Asthma -- Adult Additional Instructions: Please follow-up with your primary care physician in one to 2 days for further evaluation and treatment options. Return to the emergency room should symptoms worsen a little unresolved. Please use the Ventolin pump as prescribed. He'll given a dose of steroids in the emergency room which is long-acting and U do not require a course of steroids at home. - Post Discharge Activity
[2018-06-04] MEDS: ALBUTEROL SO4 2.5/IPRATROPIUM 0.5 INH SOL 3 ML VIAL.NEB. NEB SCH ×3 (12:14→13:04)
--- NOTE | 2018-06-06 13:36 | EKG ---
Test Reason : Blood Pressure : / mmHG Vent. Rate : 120 BPM Atrial Rate : 120 BPM P-R Int : 120 ms QRS Dur : 074 ms QT Int : 324 ms P-R-T Axes : 080 033 055 degrees QTc Int : 457 ms SINUS TACHYCARDIA NONSPECIFIC ST ABNORMALITY ABNORMAL ECG WHEN COMPARED WITH ECG OF 01-SEP-2016 17:56, NO SIGNIFICANT CHANGE WAS FOUND Confirmed by LIZZ REYNOLDS MD ([id number]) on 06/06/2018 1:36:06 PM Referred By: Confirmed By:LIZZ REYNOLDS MD
== END 2018-06-04 13:12 | disposition home or self-care (01) ==
LOC: JERFT 10:33
DX: J45.901 Unspecified asthma with (acute) exacerbation (principal); F17.210 Nicotine dependence, cigarettes, uncomplicated; R00.0 Tachycardia, unspecified
CPT/HCPCS: 71046-TC-FY; 93005; 93010; 99281-25

== ENCOUNTER 2020-07-16 20:58 | Emergency (ER) | payer OTHER ==
[2020-07-16 21:11] VITALS: BP 125/89; TEMP 98.2; BMI 23.9
[2020-07-16] MEDS ORDERED: IBUPROFEN 600 MG TABLET (FP) PO ONE ×2 (22:31→22:35)
[2020-07-16 23:48] LABS: COCAINE, UR NEGATIVE ng/ml (CUTOFF=300); METHADONE, UR NEGATIVE ng/ml (CUTOFF=300); OPIATES, URI NEGATIVE ng/ml (CUTOFF=300); PHENCYCLIDINE,URINE NEGATIVE ng/ml (CUTOFF=25); URINE BENZODIAZEPINES NEGATIVE ng/ml (CUTOFF=200)
[2020-07-16 23:49] LABS: URINE AMPHETAMINES NEGATIVE ng/ml (CUTOFF=500)
[2020-07-17 00:18] LABS: URINE BARBITURATES NEGATIVE ng/ml (CUTOFF=200)
[2020-07-17 00:54] VITALS: PULSE 104
== END 2020-07-17 00:54 | disposition home or self-care (01) ==
LOC: JER 20:58
DX: M79.10 Myalgia, unspecified site (principal)
CPT/HCPCS: 80307; 84703; 93005; 93010; 99284-25

== ENCOUNTER 2020-08-24 11:27 | Emergency (ER) | payer OTHER | END 2020-08-24 12:08 | disposition home or self-care (01) | LOC: JVIRT 11:27 | DX: Z11.52 Encounter for screening for COVID-19 (principal) | CPT/HCPCS: G2251-GT; Q3014-GT ==

== ENCOUNTER 2021-06-20 17:05 | Emergency (ER) | payer OTHER ==
[2021-06-20 18:13] VITALS: BP 105/69; PULSE 119; TEMP 98.7; BMI 22.6
[2021-06-20] MEDS ORDERED: ACETAMINOPHEN 325 MG TABLET (FP) PO ONE (20:30)
[2021-06-20] MEDS ORDERED: ACETAMINOPHEN 325 MG TABLET (FP) ONE ×2 (20:47)
== END 2021-06-20 21:04 | disposition left against medical advice (07) ==
LOC: JERFT 17:05 → JER 17:05
DX: G44.319 Acute post-traumatic headache, not intractable (principal)
CPT/HCPCS: 99283-25

== ENCOUNTER 2022-02-18 13:25 | Emergency (ER) | payer OTHER ==
[2022-02-18 13:42] VITALS: TEMP 98.2; BMI 26.5
[2022-02-18 15:43] LABS: PH,URINE 5.5 (5.0-8.0); URINE APPEARANCE CLEAR; URINE BILIRUBIN NEGATIVE (NEGATIVE); URINE COLOR YELLOW; URINE GLUCOSE (UA) NEGATIVE (NEGATIVE); URINE KETONE NEGATIVE (NEGATIVE); URINE LEUK ESTERASE 1+ (NEGATIVE); URINE NITRITE NEGATIVE (NEGATIVE); URINE PROTEIN NEGATIVE (NEGATIVE); URINE UROBILINOGEN 0.2 mg/dL (0.2-1.0); URINE WBC 17.2 /uL (0-25.8)
[2022-02-18 15:44] LABS: HCG,QUALITATIVE URINE Negative; URINE BACTERIA 133.4 /uL (0-1359)
[2022-02-18] MEDS ORDERED: SODIUM CHLORIDE 1,000 ML IV STA ×2 (15:59→17:36)
[2022-02-18] MEDS ORDERED: CEFTRIAXONE 1,000 MG in DEXTROSE 5%-WATER - 50 ML IVPB ONE (16:00)
[2022-02-18] MEDS ORDERED: CEFTRIAXONE 1 GM/50 ML BAG ONE (16:01)
[2022-02-18] MEDS ORDERED: ONDANSETRON 4 MG/2 ML VIAL IVPUSH ONE (16:20)
[2022-02-18] MEDS ORDERED: FAMOTIDINE 20 MG/50 ML IVPB 20 MG/50 ML MG IVPB ONE ×2 (16:20→16:38)
[2022-02-18] MEDS ORDERED: ACETAMINOPHEN 1000 MG/100 ML BAG IVPB ONE (16:20)
[2022-02-18] MEDS ORDERED: MAG HYDROX/AL HYDROX/SIMETH 30 ML UNIT-DOSE CUP PO ONE (16:21)
[2022-02-18] MEDS ORDERED: ACETAMINOPHEN INJECTION 100 ML IVPB ONE (16:37)
[2022-02-18] MEDS ORDERED: MAG HYDROX/AL HYDROX/SIMETH 30 ML UNIT-DOSE CUP ONE (16:38)
[2022-02-18] MEDS ORDERED: ONDANSETRON 4 MG/2 ML VIAL ONE (16:38)
[2022-02-18 16:49] LABS: HEMATOCRIT 27.9 % (32.4-45.2); HEMOGLOBIN 9.3 GM/dL (10.7-15.3); MCH 22.7 pg (25.7-33.7); MCHC 33.3 g/dl (32.0-36.0); MEAN CELL VOLUME 68.3 fl (80-96); MEAN PLT VOLUME 6.5 fl (7.5-11.1); PLATELET COUNT 359 10^3/uL (134-434); RBC 4.08 M/mm3 (3.60-5.2); RDW 19.8 % (11.6-15.6); WHITE BLOOD COUNT 9.9 K/mm3 (4.0-10.0)
[2022-02-18 17:29] LABS: CALCIUM 8.4 mg/dL (8.5-10.1)
[2022-02-18 17:30] LABS: ALBUMIN 2.9 g/dl (3.4-5.0); BLOOD UREA NITROGEN 14.2 mg/dL (7-18)
[2022-02-18 17:32] LABS: CREATININE 0.9 mg/dL (0.55-1.3)
[2022-02-18 17:34] LABS: BILIRUBIN,TOTAL 0.4 mg/dL (0.2-1); TOT PROT 6.9 g/dl (6.4-8.2)
[2022-02-18 19:14] VITALS: BP 105/75; PULSE 104; RESP 18
== END 2022-02-18 19:40 | disposition home or self-care (01) ==
LOC: JER 13:25
PROC: 3E0333Z Introduction of Anti-inflammatory into Peripheral Vein, Percutaneous Approach (ICD-10-PCS; principal; 2022-02-18)
PROC: 3E03329 Introduction of Other Anti-infective into Peripheral Vein, Percutaneous Approach (ICD-10-PCS; 2022-02-18)
PROC: 3E033GC Introduction of Other Therapeutic Substance into Peripheral Vein, Percutaneous Approach (ICD-10-PCS; 2022-02-18)
PROC: 3E033GC Introduction of Other Therapeutic Substance into Peripheral Vein, Percutaneous Approach (ICD-10-PCS; 2022-02-18)
PROC: 3E0337Z Introduction of Electrolytic and Water Balance Substance into Peripheral Vein, Percutaneous Approach (ICD-10-PCS; 2022-02-18)
DX: N39.0 Urinary tract infection, site not specified (principal); R14.0 Abdominal distension (gaseous); R10.9 Unspecified abdominal pain
CPT/HCPCS: 36415; 74177-TC; 80053; 81003; 84703; 85027; 87086; 87186; 99285-25; Q9967

== ENCOUNTER 2022-08-19 23:56 | Emergency (ER) | payer OTHER ==
[2022-08-20 00:09] VITALS: BP 105/74; PULSE 74; RESP 20; BMI 22.1
[2022-08-20] MEDS ORDERED: ACETAMINOPHEN 325 MG TABLET (FP) PO ONE (01:47)
== END 2022-08-20 03:24 | disposition home or self-care (01) ==
LOC: JER 23:56
DX: M25.532 Pain in left wrist (principal)
CPT/HCPCS: 73070-TC-LT-FY; 73090-TC-LT-FY; 73110-TC-LT-FY; 73130-TC-LT-FY; 99285-25

== ENCOUNTER 2023-01-25 07:11 | Emergency (ER) | payer OTHER ==
[2023-01-25 07:15] VITALS: BMI 28.3
[2023-01-25] MEDS ORDERED: LIDOCAINE 5% TOPICAL PATCH TP ONE (08:35)
[2023-01-25] MEDS ORDERED: KETOROLAC TROMETHAMINE 30 MG/1 ML VIAL IM ONE (08:35)
[2023-01-25] MEDS ORDERED: LIDOCAINE 5% TOPICAL PATCH ONE (08:38)
[2023-01-25] MEDS ORDERED: KETOROLAC TROMETHAMINE 60 MG/2 ML VIAL ONE (08:39)
[2023-01-25 08:46] VITALS: BP 107/72; PULSE 99; RESP 16; TEMP 98.3
[2023-01-25] MEDS ORDERED: LIDOCAINE PATCH REMOVAL MC SCH (22:00)
== END 2023-01-25 08:25 | disposition home or self-care (01) ==
LOC: JERFT 07:11
PROC: 3E0233Z Introduction of Anti-inflammatory into Muscle, Percutaneous Approach (ICD-10-PCS; principal; 2023-01-25)
DX: S39.012A Strain of muscle, fascia and tendon of lower back, initial encounter (principal); X50.0XXA Overexertion from strenuous movement or load, initial encounter
CPT/HCPCS: 99284-25